=== PATIENT | male | born 1955 | race Caucasian/White ===

== ENCOUNTER → 2019-07-25 | Outpatient (CLI) | payer MEDICARE, BC ==
[~2019-07-25] MED LIST: ISOVUE-370 76% 100ML VIAL (Q9967) As Ordered ONE
--- NOTE | 2019-07-25 17:07 | REP ---
Clinical: COPD. Technique: Axial contrast enhanced images from the thoracic inlet to the upper abdomen with coronal and sagittal re-formations using 75 ml Isovue 370 intravenous contrast material. Comparison: 03/29/2019. Findings: Ill-defined areas of possible scarring and/or atelectasis noted in the posterior right upper lobe (image 44) as well as ill-defined areas of possible atelectasis at the lingula, right middle lobe and to a lesser extent the bilateral lower lobes appear to have increased from prior examination. Areas of active disease cannot be excluded. Underlying chronic COPD/emphysematous changes and bronchiectasis noted. No obvious adenopathy. Further evaluation of the mediastinum demonstrates atherosclerotic changes to the thoracic aorta and coronary arteries without aortic aneurysm or dissection. No cardiomegaly or pericardial effusion. Impression: 1. Areas of chronic scarring along with underlying COPD/emphysematous disease are again noted. 2. Subtle increased areas of ill-defined opacity primarily noted at the lingula and right middle lobe and to a lesser extent the right base cannot exclude active pathology. Short-term follow-up examination for reevaluation is recommended. Electronically Signed by Lobo Wallis MD 07/25/2019 04:58 P
== END ==
LOC: M RAD 15:57
PROVIDERS: ATTEND Internal Medicine Pulmonary Disease
DX: J44.9 Chronic obstructive pulmonary disease, unspecified (principal)
CPT/HCPCS: 71260; Q9967

== ENCOUNTER → 2020-01-13 | Outpatient (CLI) | payer MEDICARE, BC ==
[~2020-01-13] MED LIST changes: -ISOVUE-370 76% 100ML VIAL (Q9967) As Ordered ONE; +ISOVUE-370 76% 100ML VIAL As Ordered ONE
--- NOTE | 2020-02-02 11:54 | REP ---
CONTRAST-ENHANCED CHEST CT: CLINICAL: Follow up abnormal lung findings. TECHNIQUE: Axial contrast-enhanced images from the thoracic inlet to the upper abdomen using 75 cc Isovue 370 intravenous contrast material with coronal and sagittal reformations. COMPARISON: 07/25/19, 03/29/19 FINDINGS: The bilateral lung matta are well-aerated with minimal emphysematous changes. Areas of chronic fibroatelectatic change/scarring along the medial right middle lobe, lingula and apical segment right lower lobe are again identified and similar to prior examination. The previously noted subtle areas of opacity in the right middle lobe and lingula have resolved and likely represented small areas of transient atelectasis. The current examination is without consolidation, effusion or pneumothorax and no suspicious significant nodule or mass lesion is appreciated. Small calcified granuloma in the periphery of the left lower lobe (image 62) remains stable. The tracheobronchial tree is patent. No significant mediastinal, hilar or axillary adenopathy is appreciated. Further evaluation of the mediastinum demonstrates atherosclerotic changes to the thoracic aorta and coronary arteries without aortic aneurysm or cardiomegaly. No pericardial effusion. Surrounding musculoskeletal structures are intact and without acute osseous abnormality. Limited upper abdomen demonstrates normal bilateral adrenal glands along with densely calcified lymph nodes in the region of the que hepatis and peripancreatic region, which appear chronic. IMPRESSION: 1. No acute mediastinal or pleuroparenchymal process appreciated. No active pulmonary findings. 2. Previously noted subtle areas of opacity in the right middle lobe, lingula and right lower lobe have resolved and likely represented small areas of transient atelectasis. 3. Mild chronic emphysematous changes along with minimal scattered chronic scarring remains stable through 03/29/19. [facility]
== END ==
LOC: M RAD 07:04
PROVIDERS: ATTEND Internal Medicine Pulmonary Disease
DX: R91.8 Other nonspecific abnormal finding of lung field (principal)
CPT/HCPCS: 71260; Q9967

== ENCOUNTER → 2021-02-14 | Outpatient (CLI) | payer MEDICARE, BC ==
--- NOTE | 2021-02-14 11:32 | REP ---
INDICATION: NICOTINE DEPND. COMPARISON: Multiple the latest 01/13/2020 a standard contrast-enhanced chest CT. TECHNIQUE: Axial noncontrast images from the thoracic inlet to the upper abdomen using low-dose lung screening technique (LDCT). As per the protocol only lung window images were sent to the read station for interpretation. FINDINGS: There are no new abnormal nodules, masses, or opacities. Grossly, the mediastinum and pulmonary cornell are stable. Grossly, the imaged upper abdomen and imaged osseous structures are stable. IMPRESSION: Stable lung rads category 2 low-dose screening CT examination of the lungs. <Electronically signed by Rashad Dunaway > 02/14/21 1124
== END ==
LOC: M RAD 10:57
PROVIDERS: ATTEND Internal Medicine Pulmonary Disease
DX: F17.218 Nicotine dependence, cigarettes, with other nicotine-induced disorders (principal)

== ENCOUNTER → 2022-03-20 | Outpatient (CLI) | payer MEDICARE, BC | LOC: M RAD 10:05 | PROVIDERS: ATTEND Internal Medicine Pulmonary Disease | DX: F17.218 Nicotine dependence, cigarettes, with other nicotine-induced disorders (principal) ==

== ENCOUNTER → 2023-04-03 | Outpatient (CLI) | payer MEDICARE, BC | LOC: M RAD 08:16 | PROVIDERS: ATTEND Internal Medicine Pulmonary Disease | DX: Z12.2 Encounter for screening for malignant neoplasm of respiratory organs (principal); F17.210 Nicotine dependence, cigarettes, uncomplicated ==

== ENCOUNTER 2023-09-14 11:43 | Day surgery (SDC) | payer MEDICARE ==
[~2023-09-14] VITALS: Ht 170.2 cm; Wt 75.7 kg
[~2023-09-14 11:43] MED LIST changes: +ALBU8.5H; +CARV6.25; +CLOP75TA99 PO; +CO Q200C10 PO; +EZET10TA21; -ISOVUE-370 76% 100ML VIAL As Ordered ONE; +LIPI80TA PO; +LR 1,000 ML IV SCH; +NITR0.3S SL; +PROTPAK PO; +RAMI5CAP60; +RANO500T2; +SPIR1CAP; +TIOT18CA
[2023-09-14] MEDS: FLURBIPROFEN 0.03% OPHTH SOLN 2.5 ML OS SCH (12:52)
[2023-09-14] MEDS: ATROPINE SULFATE 1% OPHTH SOLN 2ML BTL OS SCH (12:52)
[2023-09-14] MEDS: TETRACAINE 0.5% OPHTH SOLN 4ML OS SCH (12:52)
[2023-09-14] MEDS: PHENYLEPHRINE 2.5% OPHTH SOL 2ML OS SCH (12:52)
[2023-09-14] MEDS ORDERED: MIDAZOLAM INJ 2MG/2ML VIAL As Ordered ONE (13:20)
[2023-09-14] MEDS ORDERED: fentaNYL 100 MCG/2 ML INJECTION As Ordered ONE (13:20)
[2023-09-14] MEDS: LIDOCAINE 1% SDV 5ML VIAL As Ordered ONE (14:06)
[2023-09-14] MEDS: CEFUROXIME 1MG/0.1ML INTRACAMERAL INJ As Ordered ONE (14:06)
[2023-09-14 14:25] VITALS: BP 166/85; TEMP 99; O2SAT 97
== END 2023-09-14 14:55 | disposition home or self-care (01) ==
LOC: M SDC 11:43
PROVIDERS: ATTEND Ophthalmology
DX: H25.12 Age-related nuclear cataract, left eye (principal); I25.10 Atherosclerotic heart disease of native coronary artery without angina pectoris; I10 Essential (primary) hypertension; E11.9 Type 2 diabetes mellitus without complications; F32.A Depression, unspecified; G47.33 Obstructive sleep apnea (adult) (pediatric); Z79.899 Other long term (current) drug therapy; Z79.4 Long term (current) use of insulin; Z79.84 Long term (current) use of oral hypoglycemic drugs
CPT/HCPCS: 66984; J0697; J2250; J3010; V2632

== ENCOUNTER 2023-09-21 09:05 | Day surgery (SDC) | payer MEDICARE ==
[~2023-09-21] VITALS: Ht 170.2 cm; Wt 75.8 kg
[~2023-09-21 09:05] MED LIST changes: -ALBU8.5H; +ALBU8.5H INH; -CARV6.25; +CARV6.25 PO; +EZET10TA58 PO; +NITR0.4S14 SL; +RAMI5CAP60 PO; +RANO500T2 PO; +SPIR1CAP INH
[2023-09-21] MEDS ORDERED: fentaNYL 100 MCG/2 ML INJECTION As Ordered ONE (09:14)
[2023-09-21] MEDS ORDERED: MIDAZOLAM INJ 2MG/2ML VIAL As Ordered ONE (09:14)
[2023-09-21] MEDS: TETRACAINE 0.5% OPHTH SOLN 4ML OD SCH (10:07)
[2023-09-21] MEDS: FLURBIPROFEN 0.03% OPHTH SOLN 2.5 ML OD SCH (10:08)
[2023-09-21] MEDS: PHENYLEPHRINE 2.5% OPHTH SOL 2ML OD SCH (10:08)
[2023-09-21] MEDS: ATROPINE SULFATE 1% OPHTH SOLN 2ML BTL OD SCH (10:08)
[2023-09-21] MEDS: LIDOCAINE 1% SDV 5ML VIAL As Ordered ONE (12:50)
[2023-09-21] MEDS: CEFUROXIME 1MG/0.1ML INTRACAMERAL INJ As Ordered ONE (12:52)
[2023-09-21 12:58] VITALS: BP 175/80; TEMP 98.1; O2SAT 95
== END 2023-09-21 13:15 | disposition home or self-care (01) ==
LOC: M SDC 09:05
PROVIDERS: ATTEND Ophthalmology
DX: H25.11 Age-related nuclear cataract, right eye (principal); I25.10 Atherosclerotic heart disease of native coronary artery without angina pectoris; Z98.61 Coronary angioplasty status; I73.9 Peripheral vascular disease, unspecified; J44.9 Chronic obstructive pulmonary disease, unspecified; F17.218 Nicotine dependence, cigarettes, with other nicotine-induced disorders; G47.33 Obstructive sleep apnea (adult) (pediatric); Z88.5 Allergy status to narcotic agent; K21.9 Gastro-esophageal reflux disease without esophagitis; Z79.01 Long term (current) use of anticoagulants; Z79.51 Long term (current) use of inhaled steroids; Z79.899 Other long term (current) drug therapy
CPT/HCPCS: 66984; J0697; J2250; J3010; V2632